=== PATIENT | female | born 1975 | race Caucasian/White ===

== ENCOUNTER 2017-09-10 05:28 | Emergency (ER) | payer OTHER, MEDICAID ==
[2017-09-10] MEDS ORDERED: ONDANSETRON 4 MG/2 ML VIAL IVP ONE (05:35)
[2017-09-10] MEDS ORDERED: NS 1,000 ML IV ONE (05:35)
[2017-09-10] MEDS ORDERED: HYOSCYAMINE SULFATE 0.125 MG TAB PO ONE (05:35)
[2017-09-10] MEDS ORDERED: MAG HYDROX/AL HYDROX/SIMETH 30 ML UDCUP PO ONE (05:35)
[2017-09-10] MEDS ORDERED: LIDOCAINE 2% VISCOUS 15 ML UDCUP PO ONE (05:35)
[2017-09-10 05:36] VITALS: O2SAT 97
--- NOTE | 2017-09-10 05:37 | EDPHY ---
H & P HPI/ROS: HPI CHIEF COMPLAINT: Abdominal pain HISTORY OF PRESENT ILLNESS: This patient very pleasant 42-year-old female she has significant past medical history for chronic abdominal pain, she presents emergency room after she states her 70 lb dog jumped on her left upper quadrant. Since then she has had worsening abdominal pain. States typically on a typical day she has 6/10 chronic abdominal pain from endometriosis and a failed Priti fundoplication, however tonight she developed 9/10 pain an hour and half ago after dog jumped on her abdomen. She denies any fever. Denies chest pain or shortness of breath. Pain is located left upper quadrant 9/10 at this time. No lower abdominal pain. Does have nausea but no vomiting. Past Medical History: Endometriosis, chronic abdominal pain, vertigo Past Surgical History: Endometriosis surgery, Priti fundoplication, total hysterectomy, ovarian removal Social History: Denies daily use of tobacco or alcohol, does take edible marijuana. Family History: Noncontributory ROS REVIEW OF SYSTEMS: A comprehensive 10 point review of systems is otherwise negative aside from elements mentioned in the history of present illness. Exam Constitutional appears well nontoxic triage nursing summary reviewed, vital signs reviewed, awake/alert. Eyes normal conjunctivae and sclera, EOMI, PERRLA. HENT normal inspection, atraumatic, moist mucus membranes, no epistaxis, neck supple/ no meningismus, no raccoon eyes. Respiratory clear to auscultation bilaterally, normal breath sounds, no respiratory distress, no wheezing. Cardiovascular rate normal, regular rhythm, no murmur, no edema, distal pulses normal. Gastrointestinal soft, very mild tender palpation left upper quadrant certainly no peritoneal signs, , no rebound, no guarding, normal bowel sounds, no distension, no pulsatile mass. Genitourinary no CVA tenderness. Musculoskeletal no midline vertebral tenderness, full range of motion, no calf swelling, no tenderness of extremities, no meningismus, good pulses, neurovascularly intact. Skin pink, warm, & dry, no rash, skin atraumatic. Neurologic awake, alert and oriented x 3, AAOx3, moves all 4 extremities equally, motor intact, sensory intact, CN II-XII intact, normal cerebellar, normal vision, normal speech. Psychiatric normal mood/affect. Heme/Lymph/Immune no lymphadenopathy. Differential diagnosis includes but is not limited to and in no particular order : Blood force trauma to the abdomen, splenic rupture, splenic laceration Bowel obstruction, appendicitis, gallbladder disease, diverticulitis, colitis, enteritis, perforated viscus, gastritis, GERD, esophagitis, urinary tract infection, pyelonephritis, kidney stones Medical Decision Making: Plan for this patient IV establishment IV fluid bolus , Zofran for nausea GI cocktail to help with her esophageal chronic pain, CT scan abdomen pelvis with IV contrast rule out significant intra-abdominal trauma Re-evaluation: 0556: Patient requesting IV Phenergan instead of Zofran. Phenergan 12.[address] scan of the abdomen pelvis with IV contrast The results of the study are negative for acute intra-abdominal trauma specifically no splenic laceration are no acute intra-abdominal pathology or inflammation. The study was read by Dr. Pelayo I viewed the images myself on the PACS system. 0649AM: Patient's CT scan is reviewed as normal. Patient's blood work is reviewed and reassuring. She is feeling better after GI cocktail. Fluid bolus and Phenergan. She has not any vomiting here. I did re-evaluate her abdomen at this time is soft nontender there is no guarding or peritoneal signs. She feels comfortable going home. She does understand return precautions specifically she understands return emergency room she develops worsening abdominal pain fever or vomiting. Source: Patient, EMS Constitutional: Initial Vital Signs Temperature (C) 36.6 C 09/10/17 05:32 Heart Rate 100 09/10/17 05:32 Respiratory Rate 18 09/10/17 05:32 Blood Pressure 131/78 H 09/10/17 05:32 O2 Sat (%) 97 09/10/17 05:32 O2 Delivery Mode Room Air Allergies/Adverse Reactions: Cephalosporins Allergy (Verified 09/10/17 05:40) ciprofloxacin [From Cipro] Allergy (Verified 09/10/17 05:40) codeine Allergy (Verified 09/10/17 05:40) gatifloxacin [From Tequin] Allergy (Verified 09/10/17 05:40) guaifenesin [From Entex LA] Allergy (Verified 09/10/17 05:40) ketorolac [From Toradol] Allergy (Verified 09/10/17 05:40) lorazepam Allergy (Verified 09/10/17 05:40) oxycodone Allergy (Verified 09/10/17 05:40) Penicillins Allergy (Verified 09/10/17 05:40) phenylephrine [From Entex LA] Allergy (Verified 09/10/17 05:40) phenylpropanolamine [From Entex LA] Allergy (Verified 09/10/17 05:40) polyethylene glycol 3350 [From Miralax] Allergy (Verified 09/10/17 05:40) shellfish derived Allergy (Verified 09/10/17 05:40) strawberry Allergy (Verified 09/10/17 05:40) tamsulosin [From Flomax] Allergy (Verified 09/10/17 05:40) telithromycin [From Ketek] Allergy (Verified 09/10/17 05:40) Home Medications: Medication Instructions Recorded Estradiol 09/10/17 Medical Marijuana 09/10/17 Norethindrone 09/10/17 Simethicone 09/10/17 Zofran 09/10/17 Medical Decision Making - Diagnostics Imaging Results: Imaging Impressions Abdomen CT 09/10/17 05:35 Impression: 1. No significant abnormality within the abdomen and pelvis. 2. No CT evidence of appendicitis, abscess or bowel obstruction. 3. Postoperative changes from previous Priti fundoplication and previous hysterectomy. The study was performed as an emergency on-call case and discussed by telephone with Dr. Melquiades Arguelles at 0640 hrs. The final interpretation is concordant with the original communication. - Data Points Laboratory Results: Laboratory Results 09/10/17 05:47 09/10/17 05:47 09/10/17 09/10/17 06:35 05:47 Sodium 142 mEq/L mEq/L (134-144) Potassium 3.8 mEq/L mEq/L (3.5-5.2) Chloride 108 mEq/L mEq/L (97-110) Carbon Dioxide 21 mEq/l L mEq/l (22-31) Anion Gap 13 mEq/L mEq/L (8-16) BUN 14 mg/dL mg/dL (7-23) Creatinine 1.0 mg/dL mg/dL (0.6-1.0) Estimated GFR > 60 Glucose 83 mg/dL mg/dL (70-100) Calcium 9.5 mg/dL mg/dL (8.5-10.4) Total Bilirubin 0.7 mg/dL mg/dL (0.1-1.4) Conjugated Bilirubin 0.3 mg/dL mg/dL (0.0-0.5) Unconjugated Bilirubin 0.4 mg/dL mg/dL (0.0-1.1) AST 19 IU/L IU/L (14-46) ALT 38 IU/L IU/L (9-52) Alkaline Phosphatase 47 IU/L IU/L (38-126) Troponin I < 0.012 ng/mL ng/mL (0.000-0.034) Total Protein 7.6 g/dL g/dL (6.3-8.2) Albumin 4.4 g/dL g/dL (3.5-5.0) Lipase 53 IU/L IU/L (23-300) Urine Color YELLOW Urine Appearance CLEAR Urine pH 7.0 (5.0-7.5) Ur Specific [place] 1.028 (1.002-1.030) Urine Protein NEGATIVE (NEGATIVE) Urine Ketones NEGATIVE (NEGATIVE) Urine Blood NEGATIVE (NEGATIVE) Urine Nitrate NEGATIVE (NEGATIVE) Urine Bilirubin NEGATIVE (NEGATIVE) Urine Urobilinogen NEGATIVE EU EU (0.2-1.0) Ur Leukocyte Esterase NEGATIVE (NEGATIVE) Urine Glucose NEGATIVE (NEGATIVE) Medications Given: Discontinued Medications Al Hydroxide/Mg Hydroxide (Maalox Susp) 30 ml PO ONCE ONE Stop: 09/10/17 05:36 Last Admin: 09/10/17 05:54 Dose: 30 ml Hyoscyamine Sulfate (Levsin, Hyomax-Sl) 0.25 mg PO ONCE ONE Stop: 09/10/17 05:36 Last Admin: 09/10/17 06:04 Dose: Not Given Sodium Chloride (Ns) 1,000 mls @ 0 mls/hr IV EDNOW ONE; Wide Open PRN Reason: Protocol Stop: 09/10/17 05:36 Last Admin: 09/10/17 05:54 Dose: 1,000 mls Lidocaine (Lidocaine 2% Viscous) 15 ml PO ONCE ONE Stop: 09/10/17 05:36 Last Admin: 09/10/17 05:54 Dose: 15 ml Ondansetron HCl (Zofran) 4 mg IVP EDNOW ONE Stop: 09/10/17 05:36 Last Admin: 09/10/17 06:04 Dose: Not Given Promethazine HCl (Phenergan) 12.5 mg IVP ONCE ONE Stop: 09/10/17 05:57 Last Admin: 09/10/17 06:00 Dose: 12.5 mg Departure - Departure Disposition: Home, Routine, Self-Care Clinical Impression: Abdominal pain Qualifiers: Abdominal location: left upper quadrant Qualified Code(s): R10.12 - Left upper quadrant pain Condition: Good Instructions: Acute Abdominal Pain (ED) Additional Instructions: 1. Return to the emergency room if you develop worsening abdominal pain fever vomiting. Referrals: Patient,NotPresent [Unknown] - As per Instructions
[2017-09-10] MEDS ORDERED: IOPAMIDOL (ISOVUE-300) 100 ML BTL ONE (05:45)
[2017-09-10] MEDS ORDERED: PROMETHAZINE HCL 25 MG/ML INJ IVP ONE (05:56)
[2017-09-10] MEDS ORDERED: PROMETHAZINE HCL 25 MG/ML INJ ONE (05:57)
[2017-09-10 06:10] LABS: % IMMATURE GRANULYOCYTES 0.6 % (0.0-1.1); ABSOLUTE IMMATURE GRANULOCYTES 0.05 10^3/uL (0.00-0.10); ADD DIFF? NO; ADD MORPH? NO; ADD SCAN? NO; ATYPICAL LYMPHOCYTE FLAG 10 (0-99); FRAGMENT RBC FLAG 0 (0-99); HEMATOCRIT 45.2 % (38.0-47.0); HEMOGLOBIN 15.6 g/dL (12.6-16.3); LEFT SHIFT FLG 0 (0-99); LIPEMIA HEMOLYSIS FLAG 90 (0-99); MEAN CELL HEMOGLOBIN CONCENTR. 34.5 g/dL (32.4-36.7); MEAN CELL VOLUME 89.9 fL (81.5-99.8); MEAN PLATELET VOLUME 10.7 fL (8.7-11.7); PLATELET CLUMPS FLAG 0 (0-99); PLATELET COUNT 273 10^3/uL (150-400); RED BLOOD CELL COUNT 5.03 10^6/uL (4.18-5.33)
[2017-09-10 06:39] LABS: ALANINE AMINOTRANSFERASE 38 IU/L (9-52); ALBUMIN 4.4 g/dL (3.5-5.0); ALKALINE PHOSPHATASE 47 IU/L (38-126); ANION GAP 13 mEq/L (8-16); ASPARTATE AMINOTRANSFERASE 19 IU/L (14-46); BILIRUBIN,TOTAL 0.7 mg/dL (0.1-1.4); BILIRUBIN-CONJUGATED 0.3 mg/dL (0.0-0.5); BILIRUBIN-UNCONJUGATED 0.4 mg/dL (0.0-1.1); CALCIUM 9.5 mg/dL (8.5-10.4); CARBON DIOXIDE 21 mEq/l (22-31); CHLORIDE 108 mEq/L (97-110); GLOMERULAR FILTRATION RATE > 60; GLUCOSE 83 mg/dL (70-100); POTASSIUM 3.8 mEq/L (3.5-5.2); SODIUM 142 mEq/L (134-144); TOTAL PROTEIN 7.6 g/dL (6.3-8.2)
[2017-09-10 06:51] LABS: TROPONIN I < 0.012 ng/mL (0.000-0.034)
[2017-09-10 07:34] LABS: COLOR YELLOW; LEUKOCYTE ESTERASE,URINE NEGATIVE (NEGATIVE); NITRITE,URINE NEGATIVE (NEGATIVE)
[2017-09-10 07:57] VITALS: BP 128/80; PULSE 97; RESP 16; TEMP 98.1
== END 2017-09-10 07:56 | disposition home or self-care (01) ==
DX: R10.12 Left upper quadrant pain (principal); E86.9 Volume depletion, unspecified
CPT/HCPCS: 82947-QW; 96374; J2405; J2550; Q9967